=== PATIENT | male | born 1990 | race Caucasian/White ===

== ENCOUNTER 2016-09-17 12:53 | Emergency (ER) | payer OTHER ==
[~2016-09-17] VITALS: Ht 188 cm; Wt 85.0 kg
[~2016-09-17 12:53] MED LIST: CELE20TA PO; DEPA250T2 PO; LORA-392 PO; RISP0.5T28 PO
[2016-09-17 12:59] VITALS: BP 140/84; PULSE 64; RESP 16; TEMP 98.1; O2SAT 99
== END 2016-09-17 14:33 | disposition left against medical advice (07) ==
LOC: NED 12:53
DX: R68.89 Other general symptoms and signs (principal)
CPT/HCPCS: 99281